=== PATIENT | male | born 1990 ===

== ENCOUNTER 2018-11-06 15:37 | Inpatient (IN) | payer MEDICAID ==
--- NOTE | 2018-11-06 16:09 | ED PDOC ---
HPI: Psych/Substance Abuse Time Seen by Provider: 11/06/18 15:50 Chief Complaint (Nursing): Psychiatric Evaluation Chief Complaint (Provider): Psychiatric Evaluation History Per: Patient, Other (wellness worker) History/Exam Limitations: other (patient noncooperative with questioning, provides minimal responses) Associated Symptoms: Suicidal Thoughts Additional Complaint(s): 28 year old male with a past medical history of schizoaffective disorder, depression, and anxiety presents to the ED accompanied by a [facility] wellness worker for a psychiatric evaluation. As per wellness worker, patient showed up to his appointment today with and was reading a book titled How to Kill Yourself Without Making a Mistake. Patient admits to have suicidal ideation, but is unwil ling to disclose for how long. Patient reports having a history of suicidal attempts, but is unwilling to disclose the details. As per wellness worker, patient was recently seen at [facility] for a psychiatric evaluation, but was not admitted. Patient states that he wants to be locked up in a state hospital because he hates life and people. Otherwise: (-) homicidal ideations, (-) auditory or visual hallucinations, (-) physical complaints. PMD: Unable to recall. Past Medical History Reviewed: Historical Data, Nursing Documentation, Vital Signs Vital Signs: Last Vital Signs Temp 98.4 F 11/06/18 15:45 Pulse 84 11/06/18 15:45 Resp 17 11/06/18 15:45 BP 120/75 11/06/18 15:45 Pulse Ox 100 11/06/18 15:45 DANIELLE Report Viewed: Yes - Medical History PMH: Anxiety, Depression, Schizophrenia - Surgical History Surgical History: Tonsillectomy - Family History Family History: States: No Known Family Hx - Home Medications Home Medications: Ambulatory Orders Medication Instructions Recorded Atorvastatin [Lipitor] 10 mg PO DIN #7 tab 05/15/18 Cholecalciferol [Vitamin D 1000 IU] 2,000 intlu PO DAILY #14 tab 05/15/18 LORazepam [Ativan] 1 mg PO HS #14 tab 05/15/18 Perphenazine 8 mg PO AMHS #30 tab 05/15/18 Venlafaxine [Effexor XR] 150 mg PO DAILY #14 cer 05/15/18 Venlafaxine [Effexor-XR] 37.5 mg PO DAILY #14 cer 05/15/18 Gabapentin [Neurontin] 300 mg PO BID 11/06/18 - Allergies Allergies/Adverse Reactions: Allergies Allergy/AdvReac Type Severity Reaction Status Date / Time No Known Allergies Allergy Verified 05/09/18 23:04 Review of Systems ROS Statement: Except As Marked, All Systems Reviewed And Found Negative Psych: Positive for: Suicidal ideation. Negative for: Other (homicidal ideation, auditory/visual hallucinations) Physical Exam - Reviewed Nursing Documentation Reviewed: Yes Vital Signs Reviewed: Yes - Physical Exam Comments: GENERAL APPEARANCE: Patient is awake, alert, oriented x 3, in no acute distress. SKIN: Warm, dry; (-) cyanosis ENMT: Mucous membranes moist. Airway patent: (-) stridor. NECK: Supple, FROM HEART AND CARDIOVASCULAR: (-) irregularity CHEST AND RESPIRATORY: (-) rales, (-) rhonchi, (-) wheezes; breath sounds equal. Respirations even and nonlabored. ABDOMEN: Soft, (-) distention, (-) tenderness, (-) guarding. NEURO AND PSYCH: Mental status as above. Affect: flat. Patient avoids eye cont act with examiner. (-) facial asymmetry. Gait: steady. Speech: clear. - Laboratory Results Result Diagrams: 11/06/18 17:19 11/06/18 17:19 - ECG O2 Sat by Pulse Oximetry: 100 (RA) Pulse Ox Interpretation: Normal Medical Decision Making Medical Decision Makin:50 Clinical impression: 28 year old male in the ED for a psychiatric evaluation Initial plan: * crisis evaluation * 1:1 observation * reevaluation 1625 Per crisis evaluation, patient to admitted for schizoaffective disorder per Dr Arredondo. Additional orders placed for medical clearance. 1730 Patient sleeping comfortably on re-evaluation. Labs and CXR reviewed with no clinically significant abnormalities. Patient is medically stable for psychiatric admission. Vitals stable. -------- Scribe Attestation: Documented by Keeley Purcell, acting as a scribe for Keeley Muller Provider Scribe Attestation: All medical record entries made by the Scribe were at my direction and personally dictated by me. I have reviewed the chart and agree that the record accurately reflects my personal performance of the history, physical exam, medical decision making, and the department course for this patient. I have also personally directed, reviewed, and agree with the discharge instructions and disposition. Disposition - Clinical Impression Clinical Impression: Schizoaffective disorder - Patient ED Disposition Is Patient to be Admitted: Yes Counseled Patient/Family Regarding: Studies Performed, Diagnosis - Disposition Disposition Time: 16:25 Condition: FAIR - Pt Status Changed To: Hospital Disposition Of: Inpatient (psych) - Admit Certification Admit to Inpatient:: After my assessment, the patient will require hospitalization for at least two midnights. This is because of the severity of symptoms shown, intensity of services needed, and/or the medical risk in this patient being treated as an outpatient. - POA Present On Arrival: None Results - Lab Results Lab Results: 11/06/18 11/06/18 11/06/18 17:19 17:19 17:19 WBC 7.4 RBC 4.86 Hgb 14.9 Hct 43.1 MCV 88.6 MCH 30.7 MCHC 34.7 RDW 13.2 Plt Count 330 MPV 6.7 L Neut % (Auto) 70.5 Lymph % (Auto) 17.0 L Yancey % (Auto) 8.7 Eos % (Auto) 3.2 Baso % (Auto) 0.6 Neut # (Auto) 5.2 Lymph # (Auto) 1.3 Yancey # (Auto) 0.6 Eos # (Auto) 0.2 Baso # (Auto) 0.0 Sodium Potassium Chloride Carbon Dioxide Anion Gap BUN Creatinine Est GFR ( Amer) Est GFR (Non-Af Amer) Random Glucose Calcium Total Bilirubin AST ALT Alkaline Phosphatase Total Protein Albumin Globulin Albumin/Globulin Ratio Urine Color Yellow Urine Clarity Clear Urine pH 7.0 Ur Specific [place] 1.021 Urine Protein Negative Urine Glucose (UA) Neg Urine Ketones Negative Urine Blood Negative Urine Nitrate Negative Urine Bilirubin Negative Urine Urobilinogen 0.2-1.0 Ur Leukocyte Esterase Neg Urine RBC (Auto) 2 Urine Microscopic WBC 1 Ur Squamous Epith Cells < 1 Urine Opiates Screen Negative Urine Methadone Screen Negative Ur Barbiturates Screen Negative Ur Phencyclidine Scrn Negative Ur Amphetamines Screen Negative U Benzodiazepines Scrn Negative U Oth Cocaine Metabols Negative U Cannabinoids Screen Negative Alcohol, Quantitative 11/06/18 17:19 WBC RBC Hgb Hct MCV MCH MCHC RDW Plt Count MPV Neut % (Auto) Lymph % (Auto) Yancey % (Auto) Eos % (Auto) Baso % (Auto) Neut # (Auto) Lymph # (Auto) Yancey # (Auto) Eos # (Auto) Baso # (Auto) Sodium 138 Potassium 4.2 Chloride 101 Carbon Dioxide 26 Anion Gap 15 BUN 20 Creatinine 0.9 Est GFR ( Amer) > 60 Est GFR (Non-Af Amer) > 60 Random Glucose 118 H Calcium 9.4 Total Bilirubin 0.3 AST 47 ALT 41 Alkaline Phosphatase 111 Total Protein 8.0 Albumin 4.7 Globulin 3.3 Albumin/Globulin Ratio 1.4 Urine Color Urine Clarity Urine pH Ur Specific [place] Urine Protein Urine Glucose (UA) Urine Ketones Urine Blood Urine Nitrate Urine Bilirubin Urine Urobilinogen Ur Leukocyte Esterase Urine RBC (Auto) Urine Microscopic WBC Ur Squamous Epith Cells Urine Opiates Screen Urine Methadone Screen Ur Barbiturates Screen Ur Phencyclidine Scrn Ur Amphetamines Screen U Benzodiazepines Scrn U Oth Cocaine Metabols U Cannabinoids Screen Alcohol, Quantitative < 10
[2018-11-06 17:22] LABS: BASO % 0.6 % (0.0-2.0); EOS # 0.2 K/uL (0.0-0.7); EOS % 3.2 % (0.0-4.0); HEMOGLOBIN 14.9 g/dL (12.0-18.0); LYMPH # 1.3 K/uL (1.0-4.3); MEAN CELL VOLUME 88.6 fl (80.0-94.0); MEAN CORPUSCULAR HEMOGLOBIN 30.7 pg (27.0-31.0); MEAN CORPUSCULAR HGB CONC 34.7 g/dL (33.0-37.0); MEAN PLATELET VOLUME 6.7 fl (7.2-11.7); MONO # 0.6 K/uL (0.0-0.8); MONO % 8.7 % (0.0-10.0); NEUT # 5.2 K/uL (1.8-7.0); NEUT % 70.5 % (50.0-75.0); NRBC % 0.1 % (0.0-0.0); RBC 4.86 Mil/uL (4.40-5.90); RED CELL DISTRIBUTION WIDTH 13.2 % (11.5-14.5); WHITE BLOOD COUNT 7.4 K/uL (4.8-10.8)
[2018-11-06 17:25] LABS: SQUAMOUS EPITHIAL < 1 /hpf (0-5); URINE BILIRUBIN NEGATIVE (NEGATIVE); URINE BLOOD NEGATIVE (NEGATIVE); URINE CLARITY CLEAR (Clear); URINE COLOR YELLOW (YELLOW); URINE GLUCOSE (UA) NEG (NEGATIVE); URINE LEUKOCYTE ESTERASE NEG Leu/uL (Negative); URINE PROTEIN NEGATIVE (NEGATIVE); URINE UROBILINOGEN 0.2-1.0 mg/dL (0.2-1.0)
[2018-11-06 17:36] LABS: ALB/GLOB RATIO 1.4 (1.0-2.1); ALBUMIN 4.7 g/dL (3.5-5.0); ALT/SGPT 41 U/L (21-72); AST/SGOT 47 U/L (17-59); BLOOD UREA NITROGEN 20 mg/dl (9-20); CALCIUM 9.4 mg/dL (8.4-10.2); GFR NON-AFRICAN AMERICAN > 60
[2018-11-06 17:38] LABS: BARBITURATES, UR NEGATIVE (NEGATIVE); BENZODIAZEPINES, UR NEGATIVE (NEGATIVE); OPIATES, UR NEGATIVE (NEGATIVE); PHENCYCLIDINE, UR NEGATIVE (NEGATIVE)
--- NOTE | 2018-11-06 18:57 | RAD ---
Date of service: 11/06/2018 HISTORY: psych admit/clearance COMPARISON: No prior. TECHNIQUE: 1 view obtained. FINDINGS: LUNGS: No active pulmonary disease. PLEURA: No significant pleural effusion identified, no pneumothorax apparent. CARDIOVASCULAR: No aortic atherosclerotic calcification present. Normal cardiac size. No pulmonary vascular congestion. OSSEOUS STRUCTURES: No significant abnormalities. VISUALIZED UPPER ABDOMEN: Normal. OTHER FINDINGS: None. IMPRESSION: No acute cardiopulmonary disease appreciated.
[2018-11-06 21:39] VITALS: O2SAT 99
[2018-11-06] MEDS ORDERED: Alum-Mag Hydrox-Simethicone Susp (30 mL) PO PRN (21:49)
[2018-11-06] MEDS ORDERED: DiphenhydrAMINE 50 mg/ml Inj IM PRN (21:49)
[2018-11-06] MEDS ORDERED: Magnesium Hydroxide Susp 30 ml UD PO PRN (21:49)
--- NOTE | 2018-11-06 22:27 | PCM.BM ---
<Jenna Arthur - Last Filed: 11/06/18 22:25> Treatment Plan Problems - Problems identified on initial assessmt Suicidal Ideation Date Initiated: 11/06/18 Time Initiated: 22:26 Assessment reference: NA Status: Active Altered Sleep Date Initiated: 11/06/18 Time Initiated: 22:26 Assessment reference: NA Status: Active Hopelessness/Helplessness Date Initiated: 11/06/18 Time Initiated: 22:26 Assessment reference: NA Status: Active Feelings of Worthlessness Date Initiated: 11/06/18 Time Initiated: 22:27 Assessment reference: NA Status: Active Treatment assets and liabiliti Patient Assests: cooperative, ADL independent, negotiates basic needs, good past tx response, cognitively intact Patient Liabilities: poor support system - Milieu Protocol Maintain good personal hygiene: daily Encourage regular showers, other Remind patient to perform daily oral care (prn), other Assist patient to perform ADL's (prn) Conduct patient checks and document Observation sheet: Q15 minutes Maintain personal safety: every shift Educate patient to report safety concerns to staff, every shift Monitor environment for contraband/sharps Medication safety: Monitor for expected outcome, potential side effects: every shift, Assess barriers to learning: every shift, Assess readiness for medication education: every shift <Ella Simmons - Last Filed: 11/09/18 15:28> Treatment assets and liabiliti Patient Assests: adapts well, cooperative (Pt. superficially cooperative, difficult to engage in discussions regarding tx goals, and easily irritable/verbally aggressive), ADL independent, physically healthy, negotiates basic needs, cognitively intact Patient Liabilities: poor support system, relationship conflicts Family Contact Family involvement: Famliy/SO not involved Family contact: Patient declines to allow family contact at present - Outside Agency Agency 1 Care involvment: Following patient during stay, Information-sharing Agency contact name: Jasen(Cathy-art gilder)/ (Rylan-clinician) Agency contact number: [phone] Agency 2 Care involvment: Following patient during stay, Information-sharing, Other Agency contact name: [facility]- Dr. Snyder Agency contact number: [phone] - Goals for Treatment Patient goals for treatment: Patient to continue stabilization on 3NP through medication management and group/supportive therapy to address sxs of depression as exhibited by feelings of hopelessness, irritability, and eliminate SI. Patient to be encouraged to attend groups regularly to promote self-awareness, goal-setting, and improve insight, compliance, and coping skills. Patient to be provided with referral for appropriate level of aftercare to reduce risk of future hospitalizations and ensure safety in the community. Discharge/Continuing Care - Education Needs Education Needs: Patient Medication, Patient Diagnosis/Disease Process, Patient Coping Skills, Patient Anger Management skills, Patient Community resources, Patient Aftercare Safety Plan - Discharge Discharge Criteria: Tolerates medication w/o severe side effects, Free of Suicidal thoughts, Free of agitation, Normal sleep pattern, Ability to care for self Discharge to:: Home, Other ([facility], [facility]) - Treatment Team Participation Patient/Family/SO Statement: 11/09/18 15:28 Patient attended tx team this morning to discuss progress on 3NP and tx goals. Pt. reported feeling good and remained adamant about being discharged today. Pt reported that fleeting suicidal ideations are a sxs that pt. experiences at baseline but denied plan or intent. Pt. explained feelings of hopelessness towards idea that mental health tx will provide him with a better quality of life than he currently has. Pt. stated, Mela been in and out of hospitals since age 19. There is nothing you can do that hasnt been done. This is my life. It doesnt get better and have to cope with that. Pt. presented as help-rejecting and minimally receptive to tx recommendations. Pt. unable to actively participate in goal-setting or future-oriented thought, expressing belief that setting goals for the future is pointless given his mental health dx. Psychoeducation regarding benefits of remaining on 3NP for further stabilization was provided. Pt. declined to withdraw 48 hour notice and continued to demand discharge. Pt. expressed intentions of following-up with outpatient mental health providers ([facility] for community case management, [place] for OPS). Turkey Boner inquired whether pt. would remain on 3NP long enough for a meeting to be scheduled with [facility] tx team. Pt. declined wanting meeting to be held. AMA discharge explained. Pt. agreeable. Pt. easily irritable, evasive, and resistant to engaging in discussion with tx team, eventually getting up and leaving tx team abruptly. Discussed with Family/SO: No Was Patient/Family/SO present at Treatment Team Meeting: Yes
--- NOTE | 2018-11-07 09:10 | CARD ---
APPROVED REPORT Date of service: 11/07/2018 EKG Measurement Heart [id number] <Conclusion> Normal sinus rhythm Normal ECG
--- NOTE | 2018-11-07 18:08 | PCM.PSYCH ---
Initial Psychiatric Evaluation - Initial Psychiatric Evaluation Chief Complaint (in patient's own words): dont know why i came to hospital it was a mistake Patient's Reaction to Hospitalization: pt apparently signed in voluntarily in er on unit today pt submitted a 48 hour notice History of Present Illness and Precipitating Events: pt reportedly was found to be reading a book about suicide by his case monitor from [facility], pt was brought to emergency room. pt initially as well as with this sign writer hand on the unit deferred giving information, i just want my meds give me my scripts and i can go home i signed a paper to leave. staff report that pt has required redirection while on unit requesting prns to calm down. at times pt was and is noted to be pacing in hallway. per crisis note: Welding Setter received collateral information from [facility] patient case manager. Mr. La was discharged from [facility] a year ago, patient had been diagnosed with Schizoaffective Disorder, Depressive Type; Alcohol Depedence and Nicoltene Abuse. Patient have a long history of Suicidal Ideations, patient had plan in the past to slit his throat, patient have a history of self harm by cutting. Patient had been sober for a year but had re ported that he wants to drink sometimes. Patient is impulsive and could be aggressive as he have anger issues. Patient refused to have family contacted by [facility] staff or sign writer hand. Patient only protective factor was his grandmother according to Ms. Lamb and he had stated that he don't care anymore about his grandmother. Patient was reading a book of how to commit suicide and be successful or do it right as per referrent. Patient received services from the Outreach Program from [facility] and someone have weekly contact with patient. Referent stated that patient un unpredictable, he sometimes allow them to visit more often. Patient wants a long chain beamer facility. Patient was at [facility] [place] month ago but it was not admitted. CW contacted [facility] for collateral information as per Saqib patient was in their Psych ED on October 27 thru October 28. Patient had to be place in restraint and medicated. Patient was discharge the following day. Patient is being treated at [facility]. medication list [facility] [phone] fax [phone] gabapentin 300mg po bid venalfaxine er 37.5mg po daily (06/29/18 was 37.5 mg and 75mg) lorazepam 1mg po bid bupropion 300mg po day lamotrigine 25m po day perphenazine 8mg po day (06/29/18 was am and HS via hospital records) Primary care meds: fenofibrate 48mg po day ergocalciferol 1.25 po day Current Medications: Active Medications Generic Name Dose Route Start Last Admin Trade Name Freq PRN Reason Stop Dose Admin Acetaminophen 650 mg 11/06/18 21:49 Tylenol 325mg Tab PO Q4 PRN pain 4-7 Al Hydrox/Mg Hydrox/Simethicone 30 ml 11/06/18 21:49 Maalox Plus 30 Ml PO Q4 PRN Dyspepsia Diphenhydramine HCl 50 mg 11/06/18 21:49 Benadryl IM Q6 PRN Extrapyramidal S/S Unable PO Diphenhydramine HCl 50 mg 11/06/18 21:49 Benadryl PO Q6 PRN Extrapyramidal Symptoms Diphenhydramine HCl 50 mg 11/06/18 21:49 11/06/18 22:48 Benadryl PO 50 mg HS PRN Administration Sleep Gabapentin 300 mg 11/07/18 18:00 Neurontin PO BID ADDIS Gabapentin 300 mg 11/07/18 21:00 Neurontin PO 11/07/18 21:01 ONCE ONE Haloperidol 5 mg 11/06/18 21:49 Haldol PO Q4 PRN Agitation Haloperidol Lactate 5 mg 11/06/18 21:49 Haldol IM Q4 PRN Agitation, Unable to Take PO Lamotrigine 25 mg 11/07/18 18:15 Lamictal PO DAILY ADDIS Lorazepam 2 mg 11/06/18 21:49 Ativan IM Q6 PRN Anxiety/Agitation,Unable PO Lorazepam 2 mg 11/06/18 21:49 11/07/18 17:42 Ativan PO 2 mg Q6 PRN Administration Anxiety/Agitation Lorazepam 1 mg 11/08/18 09:00 Ativan PO BID ADDIS Magnesium Hydroxide 30 ml 11/06/18 21:49 Milk Of Magnesia PO HS PRN Constipation Perphenazine 8 mg 11/07/18 22:00 Perphenazine PO AMHS ADDIS Venlafaxine HCl 37.5 mg 11/08/18 09:00 Effexor Xr PO DAILY ADDIS Past Psychiatric History - Past Psychiatric History Prior Professional Help: see previous crisis note At what hospital: inpt opd [facility] Explanation of prior treatment: deferred obtained from gang worker [facility] History of Abuse: deferred History of ETOH/Drug Use: deferred History of Family Illness: deferred Pertinent Medical Hx (Current Medical&Sleep Prob, Allergies): Allergies Allergy/AdvReac Type Severity Reaction Status Date / Time No Known Allergies Allergy Verified 05/09/18 23:04 Atorvastatin [Lipitor] 10 mg PO DIN #7 tab 05/15/18 Cholecalciferol [Vitamin D 1000 IU] 2,000 intlu PO DAILY #14 tab 05/15/18 LORazepam [Ativan] 1 mg PO HS #14 tab 05/15/18 Perphenazine 8 mg PO AMHS #30 tab 05/15/18 Venlafaxine [Effexor XR] 150 mg PO DAILY #14 cer 05/15/18 Venlafaxine [Effexor-XR] 37.5 mg PO DAILY #14 cer 05/15/18 Gabapentin [Neurontin] 300 mg PO BID 11/06/18 Review of Systems - Psychiatric Psychiatric: Abnormal Sleep Pattern, Irritability, Paranoia Additional comments: ?depression, changes in mood Mental Status Examination - Personal Presentation Personal Presentation: Looks older than stated age - Affect Affect: Constricted - Motor Activity Motor Activity: Psychomotor Agitation - Reliability in Providing Information Reliability in Providing Information: Poor, due to alteration in thoughts - Speech Additional comments: defers detail - Formal Thought Process Formal Thought Process: Paranoia - Cognitive Functions Orientation: Person Judgement: Imparied, as evidence by: Other - Risk Risk: Suicidal Additional comments: defers plan - Strength & Assets Inventory Additional comments: initially cooperative later submitted 48 hour notice - Limitations Additional comments: defers giving detail talking with sign writer hand staff on unitr DSM 5 DX - DSM 5 DSM 5 Diagnosis: suicidal ideation schizophrenia paranoid type - Recommended/Plan of Treatment Treatment Recommendations and Plan of Treatment: inpt admission per attending vital signs and clinical observation per protocol and per clinical status hospitalist consult-can assess fenofibrate, ergocalciferol per pharmacy record prns per unit protocol will start effexor sr 37.5 mg po (per pharmacy records), gabapentin 300mg po bid first dose now, one time dose at 2100 and subsequent bid starting in am team can re evaluate in am 300mg po daily (per pharmacy record) but given time of day concerns for effects on sleep start lamictal 25mg po once daily per pharmacy record (pt can reassess in am increase dose and or increasing gabapentin)\ will start perphenazine 8mg po am and hs with first dose hs (was am and hs per hospital record) team can reassess in am if am/hs indicated per clinical status pt submitted a 48 hour notice @ 1640 but was agreeable to take rx per pharmacy record team can reassess if screening in am necessary Projected ELOS: 7-10 days Prognosis: guarded Discharge Plan and Discharge Criteria: safety - Smoking Cessation Smoking Cessation Initiated: No Reason for not providing: defers
[2018-11-08] MEDS ORDERED: Venlafaxine 37.5 mg ER Cap PO SCH (09:00)
[2018-11-08] MEDS ORDERED: buPROPion SR 150 MG TABLET PO SCH (10:28)
--- NOTE | 2018-11-08 10:41 | PCM.PYCHPN ---
Psychiatric Progress Note - Psychiatric Progress Note Patient seen today, length of contact: pt evaluated discussed with team chart reviewed Patient Chief Complaint: I need tp get out of here Problems Identified/Issues Discussed: pt on evaluation, seen in bed ,uncooperative , minimal eye contact guarded and paranoid, irritable mood and affect, requesting to be discharged, pt refusing to discuss treatment plan or any possible changes in medications , guarded and paranoid, even refusing to continue follow up with [facility] discussed wioth pt the need to address the reason for admission/ having suicidal thoughts, pt stated he was reading a book about suicide as he is frustrated and tired of his mental illness yet he continues to refuse to pursue inpatient treatment on reviewing chart patient had an episode of throwing belongings , banging treviño and furniture,verbally threatening to staff , security had to be present on the unit pt continues to be depressed, angry irritable , refusing help DSM 5 Symptoms Update: schizoaffective disorder depressed Medication Change: Yes (start wellbutrin) Medical Record Reviewed: Yes Mental Status Examination - Cognitive Function Orientation: Person Attention: WNL Concentration: Poor Association: WNL Fund of Knowledge: Poor Decription of patient's judgement and insights: poor insight and judgment - Mood Mood: Anxious - Affect Affect: Constricted Additional comments: irritable angry - Speech Speech: Loud - Formal Thought Process Formal Thought Process: Paranoia, Circumstantial Psychotic Thoughts and Behaviors: pt appears internally preoccupied - Suicidal Ideation Suicidal Ideation: Yes - Homicidal Ideation Homicidal Ideation: No Goal/Treatment Plan - Goal/Treatment Plan Need for Continued Stay: Severe depression anxiety Progress Toward Problem(s) and Goals/Treatment Plan: pt signed 48 hours notice requesting to be discharged pt at current mental status is danger to self and others, refusing inpatient treatment , will be referred for screening for involuntary admission for continuity of care start wellbutrin 150mg discontinue effexor increase perphenazine gradually
[2018-11-09 09:20] VITALS: BP 146/86; PULSE 97; RESP 20; TEMP 98.1
--- NOTE | 2018-11-09 14:26 | PCM.PYCHDC ---
Mental Status Examination - Mental Status Examination Orientation: Person, Place, Situation Memory: Intact Mood: Anxious Affect: Constricted Speech: Loud Attention: WNL Concentration: WNL Formal Thought Process: Circumstantial Description of patient's judgement and insight: poor insight and judgment Psychotic Thoughts and Behaviors: pt on discharge denied any current perceptual disturbances , non elicited Suicidal Ideation: No Current Homicidal Ideation?: No Discharge Summary - Discharge Note Reason for Hospitalization: as per admission note pt reportedly was found to be reading a book about suicide by his lining caser from [facility], pt was brought to emergency room. pt initially as well as with this quality analyst/technical writer on the unit deferred giving information, i just want my meds give me my scripts and i can go home i signed a paper to leave. staff report that pt has required redirection while on unit requesting prns to calm down. at times pt was and is noted to be pacing in hallway. Consultations:: List each consultation separately and include: 1. Reason for request. 2. Findings. 3. Follow-up Summary of Hospital Course include:: 1. Description of specific treatment plan utilized for patients during their course of treatmen. 2. Summarize the time- course for resolution of acute symptoms and/or regressed behaviors. 3. Describe issues identified and worked on during hospitalization. 4. Describe medication utilized. 5. Describe medical problems identified and treated. 6. Reassessment of suicide risk Summary of Hospital Course: pt on admission was guarded , evasive presenting with irritable mood and affect, refusing to continue treatment and requesting to be discharged, signing a 48 hour notice discussed with patient arranging a meeting with treatment team and case management specialist from [facility], pt declined pt was educated about the need to continue with treatment for medication adjustment and further stabilization, pt declined pt was referred for screening for involuntary admission., pt was found not meeting criteria for involuntary admission pt continued to refuse inpatient hospitalization, explained to pt risks versus benefits, he was discharged against medical advise prior to discharge , lining caser contacted case manger from [facility] also communicated with Dr Snyder office [phone], for discussing treatment plan pt on discharge denied suicidal or homicidal ideation, denied perceptual disturbances and non elicited - Final Diagnosis (DSM 5) Condition upon Discharge: FAIR DSM 5: schizoaffective disorder bipolar type Disposition: AGAINST MEDICAL ADVICE - Antipsychotic Medications Pt discharged on 2 or more routine antipsychotic medications: No
== END 2018-11-09 15:49 | disposition left against medical advice (07) | DRG 430 ==
LOC: H.ER 15:37 → H.ERHOLD 17:48 → H.PSYCH 21:48
PROVIDERS: ADMIT Psychiatry & Neurology Psychiatry; ATTEND Psychiatry & Neurology Psychiatry
PROC: GZHZZZZ Group Psychotherapy (ICD-10-PCS; principal; 2018-11-06)
PROC: GZ58ZZZ Individual Psychotherapy, Cognitive-Behavioral (ICD-10-PCS; 2018-11-06)
DX: F25.0 Schizoaffective disorder, bipolar type (principal); R45.851 Suicidal ideations; Z91.5 Personal history of self-harm; F41.9 Anxiety disorder, unspecified